=== PATIENT | male | born 1965 | race Caucasian/White ===

== ENCOUNTER 2018-01-01 08:25 | Day surgery (SDC) | payer BC ==
[~2018-01-01] VITALS: Ht 180.3 cm; Wt 117.6 kg
[2018-01-01 08:45] VITALS: BP 124/84; PULSE 72; TEMP 98.2
[2018-01-01] MEDS ORDERED: MULTI VITAMINS1 TAB PO (08:48)
[2018-01-01 10:05] VITALS: BP 114/69; PULSE 69; TEMP 97.9
[2018-01-01 10:20] VITALS: BP 117/66; PULSE 63
== END 2018-01-01 10:35 | disposition home or self-care (01) ==
LOC: SDCO 08:25
DX: Z12.11 Encounter for screening for malignant neoplasm of colon (principal); D12.5 Benign neoplasm of sigmoid colon
CPT/HCPCS: J2250; J3010; J7030